=== PATIENT | female | born 1940 | race Caucasian/White ===

== ENCOUNTER 2016-10-17 12:26 | Observation (INO) | payer OTHER ==
[~2016-10-17] VITALS: Ht 152.4 cm; Wt 70.4 kg
[~2016-10-17 12:26] MED LIST: ALBUTEROL; ASPIR-TRIN325 M1 PO; AVELOX400 MG PO; CALCIUM + D 601 EACH PO; COREG12.5 M1 PO; CRESTOR20 MG PO; CYANOCOBALAM1000 MCG PO; Coreg PO; DELTASONE10 MG PO; DELTASONE20 M1 PO; DOXYCYCLINE HY100 MG PO; DUONEB 2.5-0.5 M3 ML IH; ECOTRIN325 MG PO; LEVAQUIN500 MG PO; LISINOPRIL20 MG PO; LISINOPRIL40 MG PO; LO-DOSE ASPIRIN81 M1 PO; Levothroid,Synthroid PO; MICROZIDE12.5 M1 PO; MILLIPRED DP5 MG PO; PERCOCET 5/31 TABLET PO; PREDNISONE10 MG PO; PREDNISONE50 MG PO; PRILOSEC20 MG PO; PRINIVIL20 MG PO; PROVENTIL,2.5 MG/3 M IH; PROVENTIL,200 INHALA IH; Prilosec PO; Proventil,Ventolin H IH; RANITIDINE HCL150 MG PO; SINGULAIR10 MG PO; SPIRIVA1 INHALATI IH; SYNTHROID100 MCG PO; TYLENOL WITH C1 EACH PO; VENTOLIN HFA18 GM IH; VENTOLIN5 MG/1 ML IH; ZANTAC150 MG PO; ZESTRIL20 MG PO; ZETIA10 MG PO; ZITHROMAX Z-PA250 MG PO; ZITHROMAX250 MG PO; Zestril,Prinivil PO
[2016-10-17 12:56] LABS: HEMATOCRIT 38.6 % (36.0-46.0); MCH 30.5 PG (29.0-34.0); MCHC 32.6 G/DL (30.0-36.0); MCV 93.5 FL (83-99); MEAN PLAT.VOLUME 10.7 uM^3 (9.5-12.4); PLATELET COUNT 156 K/uL (156-360); RBC DIS.WIDTH-SD 49.1 % (39-53); RED BLOOD COUNT 4.13 M/uL (3.80-5.20); WHITE BLOOD COUNT 5.3 K/uL (4.1-10.2)
[2016-10-17 13:05] LABS: CHLORIDE 106 mEq/L (99-109); POTASSIUM 4.6 mEq/L (3.7-5.4); SODIUM 140 mEq/L (136-147)
[2016-10-17 13:07] LABS: GLUCOSE 98 mg/dL (70-99)
[2016-10-17 13:09] LABS: ANION GAP 10 MEQ/L (2-14)
[2016-10-17 13:11] LABS: GFR ESTIMATE (CALCULATED) 57 mL/min/
[2016-10-17 13:12] LABS: UREA NITROGEN (BUN) 11 mg/dL (9-23)
[2016-10-17 13:17] LABS: TROP-I INTERPRETATION NEGATIVE; TROPONIN-I < 0.01 ng/mL (0.0-0.30)
[2016-10-17] MEDS ORDERED: ASPIR 8181 M1 PO (16:00)
[2016-10-17] MEDS ORDERED: SPIRIVA1 INHALATI IH (16:02)
[2016-10-17] MEDS ORDERED: LISINOPRIL40 MG PO (16:03)
[2016-10-17 17:56] VITALS: BP 166/68
[2016-10-17 20:06] VITALS: BP 156/75
[2016-10-18 00:54] VITALS: BP 125/56
[2016-10-18 05:08] VITALS: BP 131/63
[2016-10-18 08:05] VITALS: BP 163/71
[2016-10-18 20:54] VITALS: BP 113/68
[2016-10-19 00:22] VITALS: BP 140/62
[2016-10-19 04:44] VITALS: BP 131/67
[2016-10-19 07:07] LABS: HEMATOCRIT 35.3 % (36.0-46.0); MCH 29.4 PG (29.0-34.0); MCHC 31.2 G/DL (30.0-36.0); MCV 94.4 FL (83-99); MEAN PLAT.VOLUME 10.7 uM^3 (9.5-12.4); PLATELET COUNT 169 K/uL (156-360); RBC DIS.WIDTH-CV 15.6 % (11.8-14.6); RBC DIS.WIDTH-SD 53.8 % (39-53); RED BLOOD COUNT 3.74 M/uL (3.80-5.20); WHITE BLOOD COUNT 14.2 K/uL (4.1-10.2)
[2016-10-19 07:16] LABS: ANION GAP 8 MEQ/L (2-14); CHLORIDE 108 MEQ/L (99-109); GFR ESTIMATE (CALCULATED) > 59 mL/min/; GLUCOSE 147 mg/dL (70-99); MAGNESIUM 1.9 mg/dl (1.3-2.7); SAMPLE HEMOLYSIS CHECK 0; SAMPLE ICTERIC CHECK 0; SAMPLE LIPEMIA CHECK 0; SODIUM 141 MEQ/L (136-147)
[2016-10-19 07:17] LABS: UREA NITROGEN (BUN) 24 mg/dL (9-23)
[2016-10-19 07:55] VITALS: BP 150/70
[2016-10-19] MEDS ORDERED: ADVAIR HFA120 INHALA IH (08:46)
[2016-10-19] MEDS ORDERED: SPIRIVA1 INHALATI IH (08:46)
[2016-10-19] MEDS ORDERED: AZITHROMYCIN500 M1 PO (08:46)
[2016-10-19] MEDS ORDERED: PREDNISONE10 MG PO (08:48)
== END 2016-10-19 10:11 | disposition home or self-care (01) ==
LOC: EME 12:26 → EDOF 15:17 → 5WEST 17:14
PROVIDERS: Internal Medicine
DX: J44.1 Chronic obstructive pulmonary disease with (acute) exacerbation (principal); J44.0 Chronic obstructive pulmonary disease with (acute) lower respiratory infection; J20.9 Acute bronchitis, unspecified; I25.10 Atherosclerotic heart disease of native coronary artery without angina pectoris; D72.829 Elevated white blood cell count, unspecified; I10 Essential (primary) hypertension; Z87.891 Personal history of nicotine dependence; Z91.041 Radiographic dye allergy status; Z82.49 Family history of ischemic heart disease and other diseases of the circulatory system
CPT/HCPCS: 71020; 80048; 83735; 84484; 85027; 87070; 87205; 93005; 94640; 94640 76; 94760; 99202; 99281; 99285; G0378; J2920; J2930; J7030; J7512

== ENCOUNTER 2017-01-25 16:36 | Inpatient (IN) | payer OTHER ==
[~2017-01-25] VITALS: Ht 152.4 cm; Wt 70.1 kg
[~2017-01-25 16:36] MED LIST changes: +ADVAIR HFA120 INHALA IH; +ASPIR 8181 M1 PO; +AZITHROMYCIN500 M1 PO
[2017-01-25 18:50] LABS: HEMATOCRIT 41.8 % (36.0-46.0); MCH 31.3 PG (29.0-34.0); MCHC 32.1 G/DL (30.0-36.0); MCV 97.7 FL (83-99); MEAN PLAT.VOLUME 10.7 uM^3 (9.5-12.4); PLATELET COUNT 153 K/uL (156-360); RBC DIS.WIDTH-CV 14.2 % (11.8-14.6); RBC DIS.WIDTH-SD 51.5 % (39-53); RED BLOOD COUNT 4.28 M/uL (3.80-5.20); WHITE BLOOD COUNT 5.7 K/uL (4.1-10.2)
[2017-01-25 18:59] LABS: CHLORIDE 102 mEq/L (99-109); POTASSIUM 4.9 mEq/L (3.7-5.4); SODIUM 140 mEq/L (136-147)
[2017-01-25 19:01] LABS: GLUCOSE 122 mg/dL (70-99)
[2017-01-25 19:02] LABS: ANION GAP 10 MEQ/L (2-14)
[2017-01-25 19:03] LABS: TOTAL BILIRUBIN 0.2 mg/dL (0.0-1.0)
[2017-01-25 19:04] LABS: ALKALINE PHOSPHATASE 70 IU/L (3-129)
[2017-01-25 19:05] LABS: GFR ESTIMATE (CALCULATED) > 59 mL/min/
[2017-01-25 19:06] LABS: UREA NITROGEN (BUN) 19 mg/dL (9-23)
[2017-01-25 20:58] LABS: TROP-I INTERPRETATION NEGATIVE; TROPONIN-I < 0.01 ng/mL (0.0-0.30)
[2017-01-25] MEDS ORDERED: SPIRIVA1 INHALATI IH (21:13)
[2017-01-25 23:40] VITALS: BP 183/86
[2017-01-26 00:35] LABS: ADD MIUA? NO; BILIRUBIN NEGATIVE; BLOOD NEGATIVE; COLOR YELLOW ((YELLOW)); GLUCOSE (STRIP) NEGATIVE; KETONES NEGATIVE; LEUKOCYTES NEGATIVE; NITRITE NEGATIVE; PROTEIN (STRIP) NEGATIVE; SPECIFIC GRAVITY 1.019 (1.000-1.030); UCUL ADDED? NO; UROBILINOGEN 0.2 MG/DL (0.2-1.0)
[2017-01-26 03:30] VITALS: BP 181/77
[2017-01-26 05:58] LABS: ANION GAP 9 MEQ/L (2-14); CHLORIDE 102 MEQ/L (99-109); GFR ESTIMATE (CALCULATED) > 59 mL/min/; GLUCOSE 132 mg/dL (70-99); POTASSIUM 4.4 MEQ/L (3.7-5.4); SAMPLE HEMOLYSIS CHECK 0; SAMPLE ICTERIC CHECK 0; SAMPLE LIPEMIA CHECK 0; SODIUM 139 MEQ/L (136-147); UREA NITROGEN (BUN) 22 mg/dL (9-23)
[2017-01-26 06:06] VITALS: BP 158/83
[2017-01-26 06:23] LABS: HEMATOCRIT 40.4 % (36.0-46.0); MCH 31.4 PG (29.0-34.0); MCHC 33.2 G/DL (30.0-36.0); MCV 94.6 FL (83-99); PLATELET COUNT 141 K/uL (156-360); RBC DIS.WIDTH-CV 13.9 % (11.8-14.6); RBC DIS.WIDTH-SD 48.3 % (39-53); RED BLOOD COUNT 4.27 M/uL (3.80-5.20)
[2017-01-26 06:31] LABS: WHITE BLOOD COUNT 7.6 K/uL (4.1-10.2)
[2017-01-26 07:55] VITALS: BP 153/70
[2017-01-26 11:45] VITALS: BP 127/63
[2017-01-26 15:45] VITALS: BP 136/67
[2017-01-26 20:37] VITALS: BP 167/72
[2017-01-27 00:35] VITALS: BP 152/70
[2017-01-27 03:44] VITALS: BP 127/60
[2017-01-27 07:26] VITALS: BP 176/74
[2017-01-27 09:31] LABS: ANION GAP 8 MEQ/L (2-14); CHLORIDE 100 MEQ/L (99-109); GFR ESTIMATE (CALCULATED) 57 mL/min/; GLUCOSE 143 mg/dL (70-99); POTASSIUM 4.6 MEQ/L (3.7-5.4); SAMPLE HEMOLYSIS CHECK 0; SAMPLE ICTERIC CHECK 0; SAMPLE LIPEMIA CHECK 0; SODIUM 138 MEQ/L (136-147); UREA NITROGEN (BUN) 26 mg/dL (9-23)
[2017-01-27 09:32] LABS: HEMATOCRIT 44.6 % (36.0-46.0); MCHC 32.3 G/DL (30.0-36.0); MCV 96.1 FL (83-99); MEAN PLAT.VOLUME 11.4 uM^3 (9.5-12.4); PLATELET COUNT 182 K/uL (156-360); RED BLOOD COUNT 4.64 M/uL (3.80-5.20)
[2017-01-27 09:35] LABS: WHITE BLOOD COUNT 13.1 K/uL (4.1-10.2)
[2017-01-27 11:52] VITALS: BP 156/59
[2017-01-27] MEDS ORDERED: LEVOFLOXACIN250 MG PO (13:14)
[2017-01-27] MEDS ORDERED: BENZONATATE100 MG PO (13:15)
[2017-01-27] MEDS ORDERED: PREDNISONE20 MG PO (13:18)
== END 2017-01-27 14:37 | disposition home or self-care (01) | DRG 191 ==
LOC: EME 16:36 → EDOF 22:23 → 2EAST 23:35 → 2EASTP 01-26 02:47
PROVIDERS: Hospitalist; Nurse Practitioner Family; Physician Assistant
DX: J44.1 Chronic obstructive pulmonary disease with (acute) exacerbation (principal); J44.0 Chronic obstructive pulmonary disease with (acute) lower respiratory infection; I27.2 Other secondary pulmonary hypertension; B37.0 Candidal stomatitis; R00.1 Bradycardia, unspecified; J20.9 Acute bronchitis, unspecified; I25.10 Atherosclerotic heart disease of native coronary artery without angina pectoris; Z95.5 Presence of coronary angioplasty implant and graft; I10 Essential (primary) hypertension; E03.9 Hypothyroidism, unspecified; K21.9 Gastro-esophageal reflux disease without esophagitis; K30 Functional dyspepsia; J45.909 Unspecified asthma, uncomplicated; Z87.891 Personal history of nicotine dependence; E66.9 Obesity, unspecified; Z68.30 Body mass index [BMI] 30.0-30.9, adult; I25.2 Old myocardial infarction; I70.0 Atherosclerosis of aorta; E78.5 Hyperlipidemia, unspecified; Z86.718 Personal history of other venous thrombosis and embolism
CPT/HCPCS: 71010; 71020; 80048; 80053; 81003; 84484; 85027; 87070; 87205; 93005; 93306; 94640; 94640 76; 99202; 99281; 99284; J0360; J2920

== ENCOUNTER 2017-04-08 10:38 | Emergency (ER) | payer OTHER ==
[~2017-04-08] VITALS: Ht 152.4 cm; Wt 70.4 kg
[~2017-04-08 10:38] MED LIST changes: +BENZONATATE100 MG PO; +LEVOFLOXACIN250 MG PO; +PREDNISONE20 MG PO
[2017-04-08] MEDS ORDERED: SYNTHROID112 MCG PO (11:46)
[2017-04-08 12:19] VITALS: BP 157/65
== END 2017-04-08 12:20 | disposition home or self-care (01) ==
LOC: EME 10:38
PROC: 0HQGXZZ Repair Left Hand Skin, External Approach (ICD-10-PCS; principal; 2017-04-08)
DX: S61.215A Laceration without foreign body of left ring finger without damage to nail, initial encounter (principal); W23.0XXA Caught, crushed, jammed, or pinched between moving objects, initial encounter; Z79.01 Long term (current) use of anticoagulants; Z79.82 Long term (current) use of aspirin; I10 Essential (primary) hypertension; E78.00 Pure hypercholesterolemia, unspecified; J44.9 Chronic obstructive pulmonary disease, unspecified; Z87.891 Personal history of nicotine dependence
CPT/HCPCS: 73130; 99281; 99283; S0020

== ENCOUNTER → 2017-12-23 | Outpatient (CLI) | payer OTHER ==
[~2017-12-23] MED LIST changes: +SYNTHROID112 MCG PO
== END | disposition home or self-care (01) ==
LOC: NUC 12:44
DX: R10.11 Right upper quadrant pain (principal)
CPT/HCPCS: 78227; A9537; J2805

== ENCOUNTER → 2018-01-22 | Outpatient (CLI) | payer MEDICARE, OTHER ==
[~2018-01-22] MED LIST changes: +ADVAIR 250/501 DISK IH; -ASPIR 8181 M1 PO; +CRESTOR40 MG PO; +LO-DOSE ASPIRIN81 M2 PO; +OMEPRAZOLE40 M1 PO; -SYNTHROID112 MCG PO; +TYLENOL EXTRA500 MG PO; -VENTOLIN HFA18 GM IH; +WOMEN'S 50 PLU1 EACH PO
== END | disposition home or self-care (01) ==
LOC: CDC 08:44
DX: Z01.810 Encounter for preprocedural cardiovascular examination (principal); D13.5 Benign neoplasm of extrahepatic bile ducts
CPT/HCPCS: 93000

== ENCOUNTER 2018-01-26 11:00 | Inpatient (IN) | payer OTHER ==
[~2018-01-26] VITALS: Ht 152.4 cm; Wt 70.7 kg
[2018-01-26 11:29] VITALS: BP 120/58
[2018-01-26] MEDS ORDERED: HYDROCODON-ACE1 EAC7 PO (14:38)
[2018-01-26] MEDS ORDERED: COLACE100 MG PO (14:38)
[2018-01-26 16:37] VITALS: BP 146/68
[2018-01-26 17:55] VITALS: BP 132/60
[2018-01-26 19:40] VITALS: BP 165/70
[2018-01-26 20:47] VITALS: BP 181/75
[2018-01-27] VITALS (7 sets, daily range): BP systolic 118–171; BP diastolic 58–97
[2018-01-28 00:32] VITALS: BP 114/59
[2018-01-28 04:29] VITALS: BP 120/56
[2018-01-28 08:12] VITALS: BP 153/69
[2018-01-28] MEDS ORDERED: PREDNISONE10 MG PO (09:27)
[2018-01-28] MEDS ORDERED: ZITHROMAX Z-PA250 MG PO (09:27)
== END 2018-01-28 11:18 | disposition home or self-care (01) | DRG 988 ==
LOC: SDC → 2SOUTH 14:14 → 2EAST 14:14 → SDC 15:17 → ENRESERV 20:02 → 2EAST 20:36
PROC: 0FT44ZZ Resection of Gallbladder, Percutaneous Endoscopic Approach (ICD-10-PCS; principal; 2018-01-26)
DX: J44.1 Chronic obstructive pulmonary disease with (acute) exacerbation (principal); K82.8 Other specified diseases of gallbladder; J98.11 Atelectasis; I10 Essential (primary) hypertension; I25.10 Atherosclerotic heart disease of native coronary artery without angina pectoris; E03.9 Hypothyroidism, unspecified; K21.9 Gastro-esophageal reflux disease without esophagitis; M19.90 Unspecified osteoarthritis, unspecified site; E78.5 Hyperlipidemia, unspecified; Z87.891 Personal history of nicotine dependence
CPT/HCPCS: 71045; 88304; 94640; 94640 76; 94760; 94799; 99202; G0378; J0131; J1170; J2250; J2405; J2710; J2765; J2930; J3010; J7120; J7512; J7643; Q0175; S0020; S0074

== ENCOUNTER 2018-02-18 20:58 | Observation (INO) | payer OTHER ==
[~2018-02-18] VITALS: Ht 152.4 cm; Wt 67.0 kg
[~2018-02-18 20:58] MED LIST changes: +COLACE100 MG PO; +HYDROCODON-ACE1 EAC7 PO
[2018-02-18 21:45] LABS: HEMATOCRIT 39.3 % (36.0-46.0); HEMOGLOBIN 13.3 G/DL (11.9-15.5); MCH 33.3 PG (29.0-34.0); MCHC 33.8 G/DL (30.0-36.0); MCV 98.5 FL (83-99); PLATELET COUNT 156 K/uL (156-360); RBC DIS.WIDTH-CV 14.2 % (11.8-14.6); RBC DIS.WIDTH-SD 51.3 % (39-53); RED BLOOD COUNT 3.99 M/uL (3.80-5.20); WHITE BLOOD COUNT 6.7 K/uL (4.1-10.2)
[2018-02-18 21:55] LABS: CHLORIDE 108 mEq/L (99-109); POTASSIUM 3.8 mEq/L (3.7-5.4); SODIUM 140 mEq/L (136-147)
[2018-02-18 21:57] LABS: GLUCOSE 109 mg/dL (70-99)
[2018-02-18 22:01] LABS: CREATININE 1.2 mg/dL (0.6-1.3); GFR ESTIMATE (CALCULATED) 46 mL/min/
[2018-02-18 22:02] LABS: UREA NITROGEN (BUN) 21 mg/dL (9-23)
[2018-02-18 22:07] LABS: TROP-I INTERPRETATION NEGATIVE; TROPONIN-I < 0.01 ng/mL (0.0-0.30)
[2018-02-18 22:31] LABS: ALBUMIN 3.9 g/dL (3.2-4.8)
[2018-02-18 22:34] LABS: TOTAL PROTEIN 6.7 g/dL (6.4-8.3)
[2018-02-18 22:35] LABS: TOTAL BILIRUBIN 0.3 mg/dL (0.0-1.0)
[2018-02-18 22:36] LABS: ALKALINE PHOSPHATASE 75 IU/L (3-129)
[2018-02-18 22:39] LABS: AST (GOT) 21 IU/L (2-34); DIRECT BILIRUBIN 0.1 mg/dL (0.0-0.3)
[2018-02-18 22:40] LABS: ALT (GPT) 19 IU/L (3-49); LIPASE 63 U/L (1.0-51.0)
[2018-02-18] MEDS ORDERED: ECOTRIN325 MG PO (23:09)
[2018-02-18] MEDS ORDERED: ZANTAC150 MG PO (23:12)
[2018-02-18] MEDS ORDERED: XIIDRA1 EACH BOTH EYES (23:12)
[2018-02-19 02:25] VITALS: BP 132/60
[2018-02-19 04:15] LABS: TROP-I INTERPRETATION NEGATIVE; TROPONIN-I < 0.01 ng/mL (0.0-0.30)
[2018-02-19 07:29] VITALS: BP 130/60
[2018-02-19 11:32] LABS: TROP-I INTERPRETATION NEGATIVE; TROPONIN-I < 0.01 ng/mL (0.0-0.30)
[2018-02-19 11:40] VITALS: BP 114/53
[2018-02-19] MEDS ORDERED: PREDNISONE10 MG PO (12:18)
== END 2018-02-19 15:10 | disposition home or self-care (01) ==
LOC: EME 20:58 → EDOF 23:58 → 4SOUTH 23:58 → EDOF 23:58 → ENRESERV 02-19 00:09 → 4SOUTH 02-19 01:47
PROVIDERS: Emergency Medicine; Hospitalist; Physician Assistant
DX: R07.89 Other chest pain (principal); J44.1 Chronic obstructive pulmonary disease with (acute) exacerbation; J96.01 Acute respiratory failure with hypoxia; I10 Essential (primary) hypertension; I25.10 Atherosclerotic heart disease of native coronary artery without angina pectoris; E78.5 Hyperlipidemia, unspecified; K21.9 Gastro-esophageal reflux disease without esophagitis; Z95.5 Presence of coronary angioplasty implant and graft; I25.2 Old myocardial infarction; I70.0 Atherosclerosis of aorta; Z87.891 Personal history of nicotine dependence; Z82.49 Family history of ischemic heart disease and other diseases of the circulatory system; Z91.041 Radiographic dye allergy status; Z91.048 Other nonmedicinal substance allergy status; E03.9 Hypothyroidism, unspecified; Z79.82 Long term (current) use of aspirin; Z90.49 Acquired absence of other specified parts of digestive tract; Z90.710 Acquired absence of both cervix and uterus; Z85.41 Personal history of malignant neoplasm of cervix uteri
CPT/HCPCS: 71046; 78582; 80048; 80076; 82948; 83690; 84484; 85027; 85379; 93005; 93970; 94640; 94640 76; 94799; 99202; 99281; 99284; A9540; A9567; G0378; J1650; J1815; J7512